=== PATIENT | female | born 1995 | race Caucasian/White ===

== ENCOUNTER 2017-09-18 02:49 | Emergency (ER) | payer BC ==
[~2017-09-18] VITALS: Ht 165.1 cm; Wt 80.2 kg
[2017-09-18 03:01] VITALS: TEMP 37.2; Ht 165.1 cm; Wt 80.2 kg
--- NOTE | 2017-09-18 03:44 | EMERGENCY ROOM VISIT NOTE ---
History Report prepared by Alexx: Checo Prado Under the Supervision of: Dr. Isaak Raman M.D. First contact with patient: 03:38 Chief Complaint: HAND PAIN/INJURY Stated Complaint: BLUE HAND History of Present Illness The patient is a 22 year old female who presents to the Emergency Room with complaints of constant left hand discoloration occurring tonight. The patient states that she noticed her left hand was slightly blue, primarily around the knuckles. She notes that the discoloration was worse earlier today. She reports that she first noticed that her hand was blue when she was writing a paper on her laptop. She denies any pain and breathing issues. She also denies any new soap, contamination, and new clothes. Source of History: patient Onset: tonight Position: hand (left) Quality: other (discoloration, blue) Timing: constant Note: She denies any pain and breathing issues. Review of Systems See HPI for pertinent positives & negatives. A total of 6 systems reviewed and were otherwise negative. Past Medical & Surgical Medical Problems: (1) No chronic problems Family History No pertinent family history stated. Social History Smoking Status: Never Smoker Marital Status: single Occupation Status: student Physical Exam Vital Signs Date Time Temp Pulse Resp B/P (MAP) Pulse Ox O2 Delivery O2 Flow Rate FiO2 09/18/17 04:02 82 20 113/58 97 Room Air 09/18/17 03:01 37.2 79 18 109/79 97 Room Air Physical Exam GENERAL: Patient is well appearing and in no acute distress. NECK: No stridor, no adenopathy, no meningismus, trachea is midline. LUNGS: No dyspnea. Clear to auscultation and equal bilaterally. No wheeze, no rhonchi. HEART: Regular rate and rhythm. No murmurs, rubs, gallops appreciated.. EXTREMITIES: Normal motion all extremities, no cyanosis, no edema. Bluish discoloration over top left hand and fingers, darker within crevices, easily rubbed off with alcohol swab. NEUROLOGIC: Alert and oriented, no acute motor or sensory deficits, no focal weakness, cranial nerves grossly intact. SKIN: No rash, no jaundice, no diaphoresis. Medical Decision & Procedures ED Course 0340: The patient was evaluated in room B9. A complete history and physical exam was performed. 0410: Reevaluated the patient. Discussed results and discharge instructions: she verbalized understanding and agreement. The patient is ready for discharge. Medical Decision 22 yr old female arrives with blueish discoloration over top left hand/fingers, worse in creases which easily wipes off with alcohol wipes. This is clearly dye of some sort though she is unclear where it came from. No respiratory issues nor other symptoms. Advised scrubbing of hand. No n/v issues and SLT intact. Blood Pressure Screening Patient's blood pressure: Normal blood pressure Blood pressure disposition: Did not require urgent referral Impression Primary Impression: Bluish skin discoloration Scribe Attestation The scribe's documentation has been prepared under my direction and personally reviewed by me in its entirety. I confirm that the note above accurately reflects all work, treatment, procedures, and medical decision making performed by me. Departure Information Dispostion Home / Self-Care Forms HOME CARE DOCUMENTATION FORM, IMPORTANT VISIT INFORMATION Patient Instructions My [facility] Additional Instructions Gently wash area with warm soapy water. Over next few days this should resolve discoloration. Return if severe pain or inability to use/feel hand.
[2017-09-18 04:02] VITALS: BP 113/58; PULSE 82; O2SAT 97
== END 2017-09-18 04:05 | disposition home or self-care (01) ==
LOC: C.EDB 02:50
DX: R23.0 Cyanosis (principal)